=== PATIENT | male | born 1995 | race Caucasian/White ===

== ENCOUNTER 2017-05-08 05:48 | Emergency (ER) | payer MEDICAID ==
[~2017-05-08] VITALS: Ht 185.4 cm; Wt 90.7 kg
[2017-05-08] MEDS ORDERED: NKM (05:56)
[2017-05-08 06:05] VITALS: BP 126/66
[2017-05-08] MEDS ORDERED: Acetaminophen 500mg (ES) tab ORAL ONE (06:15)
[2017-05-08] MEDS ORDERED: Ketorolac 30mg Inj IV ONE (06:15)
[2017-05-08] MEDS ORDERED: IBUPROFEN600 MG ORAL (06:18)
--- NOTE | 2017-05-08 06:19 | Emergency Room Report ---
History of Present Illness General Chief Complaint: Headache Source: Patient (DUARTE SUMMERS M.D.) Present Illness HPI Is a 21-year-old male with no past history. He presents with chief complaint of headache and feeling weak. Onset for one day. Has congestion and stuffy nose. Headache is described as achy nature. Throbbing in nature. He blew his nose and has some specks of blood. No cough or congestion. No abdominal pain. One episode diarrhea earlier today. He called the nurse advice line and was told to come into the hospital. Described the pain as 05/13. [place] dehydrated. (DUARTE SUMMERS M.D.) Allergies: Coded Allergies: No Known Allergies (Unverified , 05/08/17) Patient History Past Medical History: none Past Surgical History: none Pertinent Family History: none Social History: Denies: smoking Immunizations: UTD Reviewed Nursing Documentation: PMH: Agreed, PSxH: Agreed (DUARTE SUMMERS M.D.) Nursing Documentation-PMH Past Medical History: No Stated History (DUARTE SUMMERS M.D.) Review of Systems Constitutional: Reports: malaise, weakness Eye: Denies: blurred vision, eye pain ENT: Denies: ear pain, nose congestion, throat swelling Respiratory: Denies: cough, shortness of breath Cardiovascular: Denies: chest pain, palpitations Gastrointestinal: Denies: abdominal pain, diarrhea, nausea, vomiting Musculoskeletal: Denies: back pain, joint pain Skin: Denies: rash Neurological: Denies: headache, numbness Endocrine: Denies: increased thirst, increased urine Hematologic/Lymphatic: Denies: easy bruising All Other Systems: negative except mentioned in HPI (DUARTE SUMMERS M.D.) Physical Exam Vital Signs Date Time Temp Pulse Resp B/P Pulse Ox O2 Delivery O2 Flow Rate FiO2 05/08/17 05:53 101.7 99 18 120/73 95 Room Air vitals with fever Sp02 EP Interpretation: reviewed, normal General Appearance: well appearing, no apparent distress, alert Head: normocephalic, atraumatic Eyes: bilateral eye EOMI, bilateral eye PERRL ENT: hearing grossly normal, normal pharynx Neck: full range of motion, supple, no meningismus Respiratory: chest non-tender, lungs clear, normal breath sounds Cardiovascular #1: regular rate, rhythm, no murmur Gastrointestinal: normal bowel sounds, non tender, no mass, no organomegaly, no bruit, non-distended Musculoskeletal: back normal, gait/station normal, normal range of motion Psychiatric: mood/affect normal Skin: warm/dry (DUARTE SUMMERS M.D.) Medical Decision Making Diagnostic Impression: Primary Impression: Viral illness Additional Impressions: Headache Qualified Codes: R51 - Headache Hypokalemia ER Course Patient with headache and fever. Neck is supple. No evidence of meningitis, sepsis, pneumonia to name a few. Based on the constellation of his symptoms, most likely viral in nature. Will check labs and hydrate patient. I will sign this patient out to Dr. Sanders. Patient most likely will go home. (DUARTE SUMMERS M.D.) ER Course I agree with the above assessment by a doctor Nadya. The patient is treated with IV hydration and antiemetic and analgesia. Potassium returns significantly low. Potassium replacement ordered. Patient tolerating PO well. Also pain resolved as is fever. Patient stable for outpatient observation and treatment. Discharge with friend. Labs Test 05/08/17 06:15 White Blood Count 15.4 K/UL (4.8-10.8) Red Blood Count 4.42 M/UL (4.70-6.10) Hemoglobin 13.5 G/DL (14.2-18.0) Hematocrit 39.3 % (42.0-52.0) Mean Corpuscular Volume 89 FL (80-99) Mean Corpuscular Hemoglobin 30.5 PG (27.0-31.0) Mean Corpuscular Hemoglobin Concent 34.3 G/DL (32.0-36.0) Red Cell Distribution Width 11.2 % (11.6-14.8) Platelet Count 222 K/UL (150-450) Mean Platelet Volume 8.2 FL (6.5-10.1) Neutrophils (%) (Auto) 80.9 % (45.0-75.0) Lymphocytes (%) (Auto) 9.3 % (20.0-45.0) Monocytes (%) (Auto) 9.4 % (1.0-10.0) Eosinophils (%) (Auto) 0.0 % (0.0-3.0) Basophils (%) (Auto) 0.5 % (0.0-2.0) Sodium Level 134 mEQ/L (135-145) Potassium Level 2.9 mEQ/L (3.4-4.9) Chloride Level 98 mEQ/L (98-107) Carbon Dioxide Level 22 mEQ/L (20-30) Anion Gap 14 (5-15) Blood Urea Nitrogen 10 mg/dL (7-23) Creatinine 1.1 mg/dL (0.7-1.2) Estimat Glomerular Filtration Rate > 60 mL/min (>60) Glucose Level 110 mg/dL (74-106) Calcium Level 8.8 mg/dL (8.6-10.2) (Tyson Sanders M.D.) Last Vital Signs Date Time Temp Pulse Resp B/P Pulse Ox O2 Delivery O2 Flow Rate FiO2 05/08/17 06:05 102.3 89 15 126/66 97 Room Air Status: improved (DUARTE SUMMERS M.D.) Last Vital Signs Date Time Temp Pulse Resp B/P Pulse Ox O2 Delivery O2 Flow Rate FiO2 05/08/17 09:26 89 18 122/74 98 05/08/17 08:22 98.1 05/08/17 06:05 Room Air Status: improved (Tyson Sanders M.D.) Disposition: HOME, SELF-CARE Condition: Stable Scripts Ondansetron Odt* (ZOFRAN ODT*) 4 Mg Tab.rapdis 4 MG ORAL Q6H Y for Nausea & Vomiting, #6 TAB 1 Refill Prov: Tyson Sanders M.D. 05/08/17 Ibuprofen* (MOTRIN*) 600 Mg Tablet 600 MG ORAL Q8H Y for For Pain, #30 TAB 0 Refills Prov: DUARTE SUMMERS M.D. 05/08/17 Additional Instructions: Followup with your DrRich in 2-3 days if not better. Increase fluids. Return if symptom worsen. DUARTE SUMMERS M.D. May 08, 2017 06:19 Tyson Sanders M.D. May 08, 2017 07:14
[2017-05-08 06:50] LABS: BASOPHILS % (AUTO) 0.5 % (0.0-2.0); LYMPHOCYTES % (AUTO) 9.3 % (20.0-45.0); MEAN CORPUSCULAR HEMOGLOBIN 30.5 PG (27.0-31.0); MEAN CORPUSCULAR HGB CONC 34.3 G/DL (32.0-36.0); MEAN CORPUSCULAR VOLUME 89 FL (80-99); MEAN PLATELET VOLUME 8.2 FL (6.5-10.1); MONOCYTES % (AUTO) 9.4 % (1.0-10.0); NEUTROPHILS % (AUTO) 80.9 % (45.0-75.0); PLATELET COUNT 222 K/UL (150-450); RED BLOOD COUNT 4.42 M/UL (4.70-6.10); RED CELL DISTRIBUTION WIDTH 11.2 % (11.6-14.8); WHITE BLOOD COUNT 15.4 K/UL (4.8-10.8)
[2017-05-08 06:51] LABS: ANION GAP 14 (5-15); CALCIUM 8.8 mg/dL (8.6-10.2); CARBON DIOXIDE 22 mEQ/L (20-30); CHLORIDE 98 mEQ/L (98-107); CREATININE 1.1 mg/dL (0.7-1.2); GLOMERULAR FILTRATION RATE > 60 mL/min (>60); HEMOLYSIS 7; POTASSIUM 2.9 mEQ/L (3.4-4.9); SODIUM 134 mEQ/L (135-145)
[2017-05-08] MEDS ORDERED: KCl 10% 40mEq/30ml liquid ORAL STA (06:59)
[2017-05-08 08:22] VITALS: BP 124/76
[2017-05-08] MEDS ORDERED: ZOFRAN ODT4 MG ORAL (08:58)
[2017-05-08 09:26] VITALS: BP 122/74
== END 2017-05-08 09:30 | disposition home or self-care (01) ==
LOC: EMR 06:24
DX: B34.9 Viral infection, unspecified (principal); R51 Headache; E87.6 Hypokalemia
CPT/HCPCS: 36415; 80048; 85025; 96374; 99284; J1885; J2405; J3480